=== PATIENT | male | born 1985 | race Caucasian/White ===

== ENCOUNTER 2022-02-27 15:20 | Outpatient (REF) | payer OTHER, SELFPAY ==
--- NOTE | ~2022-02-27 | MR_ITS ---
EXAMINATION: MR BRAIN WITHOUT AND WITH CONTRAST CLINICAL INFORMATION: 36-year-old with brain lesion. COMPARISON: 12/08/2018 outside MRI. Report not currently available. TECHNIQUE: Multiplanar, multisequence MRI of the brain was obtained before and after the intravenous administration of 10 mL Gadavist. FINDINGS: BRAIN VOLUME: Within normal limits within the limitations of qualitative assessment. 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 BRAIN AND MENINGES: DWI sequence demonstrates no restricted diffusion to suggest acute or subacute cerebral ischemia. Gradient refocused imaging demonstrates no abnormal magnetic susceptibility artifact to suggest hemorrhage, hemosiderin staining or abnormal mineralization. Note is made of a 2.2 cm focus of CSF signal intensity associated with scalloping of the inner table of the left parietal calvarium overlying the left superior parietal lobule, which has an appearance consistent with an arachnoid cyst, stable in appearance. There is a focally confluent zone of FLAIR/T2 signal hyperintensity within the deep right frontal white matter adjacent to the frontal horn of the right lateral ventricle, extending to the prelenticular portion of the right internal capsule, which is grossly unchanged in size and configuration compared to the previous study. There is minimal associated T1 hypointensity which is unchanged. Etiology uncertain. There is a 3 mm nonenhancing left frontal subcortical white matter T2 hyperintensity at the same level which is stable. There is a small, nonenhancing T2 hyperintensity in the right subinsular region which is also stable. Remainder of the brain is normal in morphology and signal intensity. No enhancing intracranial mass lesions or pathologic intracranial enhancement. There is a focally prominent perivascular space in the right parietal lobe which is stable. VENTRICLES AND SUBARACHNOID SPACES: The ventricular system and subarachnoid spaces are within normal limits without hydrocephalus, stable in appearance. ORBITAL STRUCTURES: The visualized orbital structures are grossly unremarkable within the limitations of the study. VASCULAR: Signal voids are noted in the visualized major intracranial vessels. OSSEOUS STRUCTURES, SINUSES/MASTOIDS, EXTRACRANIAL SOFT TISSUES: There is a T1/T2 hyperintensity layering in the dependent portion of the sphenoid sinus, unchanged in appearance from previous study, which may reflect a retention cyst. There is nasal septal deviation to the right, unchanged. There are probably some retention cysts and some mucosal inflammatory changes along the floors of both maxillary sinuses which appear improved on the left and stable on the right. There is a 1.5 cm ovoid T1 hypointensity in the subcutaneous fat at the level of C3-C4 posteriorly which is not visualized on the previous study, but could reflect a sebaceous cyst. MR/MR head/brain wo/w con IMPRESSION: 1. Stable nonspecific, nonenhancing lesion in the deep right frontal white matter of indeterminate etiology and clinical significance. Other small stable, nonenhancing, nonspecific subcortical white matter T2 hyperintensities in the frontal regions. 2. Probable small arachnoid cyst overlying the left parietal lobe, stable in appearance. 3. Minimal cerebellar tonsillar ectopia on the right, stable in appearance, which is an anatomic variant. 4. Paranasal sinus inflammatory changes as described above. 5. Question of a new sebaceous cyst in the subcutaneous fat of the posterior cervical soft tissues at the C3-C4 level. Correlate with physical examination.
== END 2022-02-27 15:21 | disposition home or self-care (01) ==
LOC: HO.MRI 15:20
PROVIDERS: PCP Internal Medicine; Visit Provider Psychiatry & Neurology Neurology
DX: G93.9 Disorder of brain, unspecified (principal)
CPT/HCPCS: 70553; A9585